=== PATIENT | male | born 1980 | race Asian ===

== ENCOUNTER → 2017-01-01 | Outpatient (CLI) | payer OTHER | END | disposition home or self-care (01) | LOC: EMPHLTH 08:18 | PROVIDERS: ATTEND Internal Medicine | DX: R76.11 Nonspecific reaction to tuberculin skin test without active tuberculosis (principal) ==

== ENCOUNTER → 2021-01-01 | Outpatient (CLI) | payer OTHER | END | disposition home or self-care (01) | LOC: RADMN 08:12 | PROVIDERS: ATTEND Internal Medicine | DX: R76.11 Nonspecific reaction to tuberculin skin test without active tuberculosis (principal) | CPT/HCPCS: 71045-TC ==

== ENCOUNTER 2024-03-20 09:10 | Emergency (ER) | payer OTHER ==
[~2024-03-20] VITALS: Ht 167.6 cm; Wt 62.7 kg
[2024-03-20 09:22] VITALS: TEMP 98.6
[2024-03-20 11:30] VITALS: BP 148/84; PULSE 70; RESP 16
[2024-03-20] MEDS: FLUORESCEIN SODIUM 1 MG STRIP OU ONE (11:31)
[2024-03-20] MEDS: PROPARACAINE HCL 0.5% 15 ML OPHTHALMIC SOLUTION OU ONE (11:31)
[2024-03-20] MEDS ORDERED: POLYOS OD (12:33)
== END 2024-03-20 13:04 | disposition home or self-care (01) ==
LOC: EMS 09:10
DX: H10.31 Unspecified acute conjunctivitis, right eye (principal)
CPT/HCPCS: 99283